=== PATIENT | female | born 1990 | race African-American/Black ===

== ENCOUNTER 2019-06-06 16:39 | Emergency (ER) | payer OTHER ==
[2019-06-06] MEDS ORDERED: ACETAMINOPHEN 500 MG TABLET (FP) PO ONE (16:47)
--- NOTE | 2019-06-06 16:47 | PDOC ---
Rapid Medical Evaluation Time Seen by Provider: 06/06/19 16:46 Medical Evaluation: 06/06/19 16:46 CC: "I have the flu." PE: MMM. OP-WNL. Lungs CTAB. Orders: tylenol Patient will proceed to ED for further evaluation. Discharge Disposition - Diagnosis Influenza-like symptoms - Referrals Referrals: Jerilyn Lance MD [Primary Care Provider] - - Patient Instructions - Post Discharge Activity
[2019-06-06 16:49] VITALS: BP 124/78; PULSE 102; TEMP 102.8; BMI 30.2
--- NOTE | 2019-06-06 17:05 | PDOC ---
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 Past History - Past Medical History Allergies/Adverse Reactions: Allergies Allergy/AdvReac Type Severity Reaction Status Date / Time amoxicillin Allergy Verified 06/06/19 16:49 Home Medications: Ambulatory Orders Oseltamivir Phosphate [Tamiflu] 75 mg PO BID #10 capsule 06/06/19 COPD: No - Psycho Social/Smoking Cessation Hx Smoking History: Never smoked Hx Alcohol Use: No Drug/Substance Use Hx: No Review of Systems - Review of Systems Constitutional: Yes: Fever HEENTM: Yes: Nose Congestion *Physical Exam - Vital Signs Last Vital Signs Temp Pulse Resp BP Pulse Ox 102.8 F H 102 H 16 124/78 100 06/06/19 16:45 06/06/19 16:45 06/06/19 16:45 06/06/19 16:45 06/06/19 16:45 - Physical Exam 06/06/19 17:04 GENERAL: The patient is awake, alert, and fully oriented, in no acute distress. HEAD: Normal with no signs of trauma. EYES: sclera anicteric, conjunctiva clear. ENT: Ears normal tympanic membranes normal oropharynx clear uvula midline NECK: Normal range of motion LUNGS: Breath sounds equal, clear to auscultation bilaterally. No wheezes, and no crackles. HEART: S1 and S2 without murmur, rub or gallop. ABDOMEN: Soft, nontender, normoactive bowel sounds. No guarding, no rebound. No masses. EXTREMITIES: Normal range of motion, no edema. No clubbing or cyanosis. No cords, erythema, or tenderness. NEUROLOGICAL: Cranial nerves II through XII grossly intact. Normal speech, normal gait. PSYCH: Normal mood, normal affect. SKIN: Warm, Dry, normal turgor, no rashes or lesions noted. Medical Decision Making - Medical Decision Making 06/06/19 17:04 Tamiflu sent Discharge - Discharge Information Problems reviewed: Yes Clinical Impression/Diagnosis: Influenza-like symptoms Condition: Stable Disposition: HOME - Admission No - Additional Discharge Information Prescriptions: Oseltamivir Phosphate [Tamiflu] 75 mg PO BID #10 capsule - Follow up/Referral Referrals: Jerilyn Lance MD [Primary Care Provider] - - Patient Discharge Instructions Patient Printed Discharge Instructions: Influenza Additional Instructions: Please take the Tamiflu as directed. Tylenol Motrin as directed for pain. Return to the emergency room for worsening symptoms without fail follow-up with your primary care physician in 2 to 3 days for further evaluation and treatment options. - Post Discharge Activity
[2019-06-06] MEDS ORDERED: ACETAMINOPHEN 325 MG TABLET (FP) ONE (17:31)
== END 2019-06-06 18:01 | disposition home or self-care (01) ==
LOC: JERFT 16:39
DX: J11.1 Influenza due to unidentified influenza virus with other respiratory manifestations (principal); Z88.0 Allergy status to penicillin
CPT/HCPCS: 99281-25

== ENCOUNTER 2019-07-01 17:41 | Emergency (ER) | payer OTHER ==
--- NOTE | 2019-07-01 18:06 | PDOC ---
Rapid Medical Evaluation Time Seen by Provider: 07/01/19 18:02 Medical Evaluation: Allergies Allergy/AdvReac Type Severity Reaction Status Date / Time amoxicillin Allergy Verified 07/01/19 18:04 07/01/19 18:05 Pt c/o: chest pain x 5 days , went to [facility] had ekg and then given toradol, pt states pain is continued and now vomiting Pt on brief exam: reproducible cp zaheer Pt ordered for:labs, ekg, pt to proceed to the ED 07/01/19 18:09 Discharge Disposition - Diagnosis Chest pain - Referrals - Patient Instructions - Post Discharge Activity
[2019-07-01 18:09] VITALS: BP 141/97; PULSE 68; TEMP 98; BMI 28.9
[2019-07-01 18:35] LABS: BASO % 0.6 % (0-2.0); EOS % 0.2 % (0-4.5); HEMATOCRIT 36.2 % (32.4-45.2); HEMOGLOBIN 11.9 GM/dL (10.7-15.3); LYMPH % 22.1 % (8-40); MCH 27.4 pg (25.7-33.7); MCHC 32.8 g/dl (32.0-36.0); MEAN CELL VOLUME 83.5 fl (80-96); MEAN PLT VOLUME 8.9 fl (7.5-11.1); MONO % 5.6 % (3.8-10.2); NEUT % 71.5 % (42.8-82.8); PLATELET COUNT 225 K/MM3 (134-434); RBC 4.34 M/mm3 (3.60-5.2); RDW 14.1 % (11.6-15.6); WHITE BLOOD COUNT 9.9 K/mm3 (4.0-10.0)
[2019-07-01 19:12] LABS: ALBUMIN 4.2 g/dl (3.4-5.0); ALK PHOS 82 U/L (45-117); ANION GAP 7 MMOL/L (8-16); BILIRUBIN,TOTAL 0.3 mg/dL (0.2-1); BLOOD UREA NITROGEN 9.7 mg/dL (7-18); CALCIUM 9.3 mg/dL (8.5-10.1); CHLORIDE 108 mmol/L (98-107); CO2 24 mmol/L (21-32); CREATININE 0.8 mg/dL (0.55-1.3); GLUCOSE,RANDOM 95 mg/dL (74-106); POTASSIUM 3.5 mmol/L (3.5-5.1); SGOT/AST 14 U/L (15-37); SGPT/ALT 14 U/L (13-61); SODIUM 139 mmol/L (136-145); TOT PROT 8.2 g/dl (6.4-8.2)
[2019-07-01] MEDS ORDERED: ONDANSETRON *ODT* 4 MG TABLET SL ONE (20:37)
[2019-07-01] MEDS ORDERED: ONDANSETRON *ODT* 4 MG TABLET ONE (20:42)
--- NOTE | 2019-07-01 20:52 | PDOC ---
History of Present Illness - General Chief Complaint: Cold Symptoms Stated Complaint: CHEST PAIN Time Seen by Provider: 07/01/19 18:02 History Source: Patient Exam Limitations: No Limitations - History of Present Illness Initial Comments: 07/01/19 20:49 HISTORY OF PRESENT ILLNESS: 31-year-old otherwise healthy woman who presents emergency department for evaluation of fevers, headaches, epigastric chest pain , and acidic taste in her mouth over the past 5 days. Patient reports her epigastric pain radiates to lower back. Patient reports multiple ER, urgent care and PMD appointments over the past 5 days for reevaluation of the symptoms. Initially patient was told she had a pneumonia and was told she had influenza. Patient was given a Toradol shot earlier today at her primary doctor 's office after he diagnosed her with an influenza-like illness. No recent travel or sick contacts. PAST MEDICAL HISTORY: Denies past medical history SURGICAL HISTORY: Denies ALLERGIES: No known drug allergies REVIEW OF SYSTEMS General/Constitutional: Denies fever or chills. Denies weakness, weight change. HEENT: Denies change in vision. Denies ear pain or discharge. Denies sore throat. Cardiovascular: See HPI Respiratory: Denies cough, wheezing, or hemoptysis. Gastrointestinal: See HPI Genitourinary: Denies dysuria, frequency, or change in urination. Musculoskeletal: Denies joint or muscle swelling or pain. Denies neck or back pain. Skin and breasts: Denies rash or easy bruising. Neurologic: See HPI Psychiatric: Denies depression or anxiety. Endocrine: Denies increased thirst. Denies abnormal weight change. Hematologic/Lymphatic: Denies anemia, easy bleeding, or history of blood clots. Allergic/Immunologic: Denies hives or skin allergy. Denies latex allergy. PHYSICAL EXAM General Appearance: Well-appearing, appropriately dressed. No apparent distress , no intoxication. HEENT: EOMI, PERRLA, normal ENT inspection, normal voice, TMs normal. No conjunctival pallor. No photophobia, scleral icterus. Oropharynx mildly erythematous without lesions or exudates present. Neck: Supple. Trachea midline. No tenderness, rigidity, carotid bruit, stridor , lymphadenopathy, or thyromegaly. Respiratory/Chest: Lungs CTAB. No shortness of breath, chest tenderness, respiratory distress, accessory muscle use. No crackles, rales, rhonchi, stridor , wheezing, dullness Cardiovascular: RRR. S1, S2. No JVD, murmur, bradycardia, tachycardia. Vascular Pulses: Dorsalis-Pedis (R): 2+, Dorsalis-Pedis (L): 2+ Gastrointestinal/Abdominal: Normal bowel sounds. Abdomen soft, non-distended. No tenderness or rebound tenderness. No organomegaly, pulsatile mass, guarding, hernia, hepatomegaly, splenomegaly. Lymphatic: No adenopathy, tenderness. Musculoskeletal/Extremities: Normal inspection. FROM of all extremities, normal capillary refill. Pelvis Stable. No CVA tenderness. No tenderness to extremities, pedal edema, swelling, erythema or deformity. Integumentary: Appropriate color, dry, warm. No cyanosis, erythema, jaundice or rash Neurologic: sugar sampler II-XII intact. Fully oriented, alert. Appropriate mood/affect. Motor strength 5/5. No appreciable EOM palsy, facial droop or sensory deficit. 07/01/19 22:21 Past History - Past Medical History Allergies/Adverse Reactions: Allergies Allergy/AdvReac Type Severity Reaction Status Date / Time amoxicillin Allergy Verified 07/01/19 18:04 Home Medications: Ambulatory Orders Oseltamivir Phosphate [Tamiflu] 75 mg PO BID #10 capsule 06/06/19 COPD: No - Psycho Social/Smoking Cessation Hx Smoking History: Never smoked Hx Alcohol Use: No Drug/Substance Use Hx: No *Physical Exam - Vital Signs Last Vital Signs Temp Pulse Resp BP Pulse Ox 98 F 68 18 141/97 99 07/01/19 18:05 07/01/19 18:05 07/01/19 18:05 07/01/19 18:05 07/01/19 18:05 ED Treatment Course - LABORATORY CBC & Chemistry Diagram: 07/01/19 18:20 07/01/19 18:20 - ADDITIONAL ORDERS Additional order review: Laboratory Results 07/01/19 18:20 Sodium 139 Potassium 3.5 Chloride 108 H Carbon Dioxide 24 Anion Gap 7 L BUN 9.7 Creatinine 0.8 Est GFR (CKD-EPI)AfAm 117.93 Est GFR (CKD-EPI)NonAf 101.75 Random Glucose 95 Calcium 9.3 Total Bilirubin 0.3 AST 14 L ALT 14 Alkaline Phosphatase 82 Creatine Kinase 117 Troponin I < 0.02 Total Protein 8.2 Albumin 4.2 07/01/19 18:20 RBC 4.34 MCV 83.5 MCHC 32.8 RDW 14.1 MPV 8.9 Neutrophils % 71.5 Lymphocytes % 22.1 Monocytes % 5.6 Eosinophils % 0.2 Basophils % 0.6 - RADIOLOGY Radiology Studies Ordered: Category Date Time Status CHEST PA & LAT [RAD] Stat Radiology 07/01/19 20:35 Ordered - Medications Given in the ED: ED Medications Discontinued Medications Generic Name Dose Route Start Last Admin Trade Name Freq PRN Reason Stop Dose Admin Ondansetron HCl 4 mg 07/01/19 20:37 07/01/19 20:46 Zofran Odt - SL 07/01/19 20:38 4 mg ONCE ONE Administration Medical Decision Making - Medical Decision Making 07/01/19 20:51 A/P: 28-year-old woman with 5 days of epigastric pain, acidic taste in the mouth, headaches and fevers. Physical exam is unremarkable Laboratory testing per [facility] EKG Chest x-ray Urinalysis, urine culture, urine , urine toxicology Zofran 4 mg sublingual now Encourage oral fluids Reassess 07/01/19 22:20 Laboratory Tests 07/01/19 07/01/19 07/01/19 18:20 18:20 20:39 WBC 9.9 RBC 4.34 Hgb 11.9 Hct 36.2 MCV 83.5 MCH 27.4 MCHC 32.8 RDW 14.1 Plt Count 225 MPV 8.9 Absolute Neuts (auto) 7.0 Neutrophils % 71.5 Lymphocytes % 22.1 Monocytes % 5.6 Eosinophils % 0.2 Basophils % 0.6 Nucleated RBC % 0 Sodium 139 Potassium 3.5 Chloride 108 H Carbon Dioxide 24 Anion Gap 7 L BUN 9.7 Creatinine 0.8 Est GFR (CKD-EPI)AfAm 117.93 Est GFR (CKD-EPI)NonAf 101.75 Random Glucose 95 Calcium 9.3 Total Bilirubin 0.3 AST 14 L ALT 14 Alkaline Phosphatase 82 Creatine Kinase 117 Troponin I < 0.02 Total Protein 8.2 Albumin 4.2 Urine Color Urine Appearance Urine pH Ur Specific [place] Urine Protein Urine Glucose (UA) Urine Ketones Urine Blood Urine Nitrite Urine Bilirubin Urine Urobilinogen Ur Leukocyte Esterase Urine WBC (Auto) Urine RBC (Auto) Urine Casts (Auto) U Epithel Cells (Auto) Urine Bacteria (Auto) Urine HCG, Qual Opiates Screen Negative Methadone Screen Negative Barbiturate Screen Negative Phencyclidine Screen Negative Ur Amphetamines Screen Negative MDMA (Ecstasy) Screen Negative Benzodiazepines Screen Negative Cocaine Screen Negative U Marijuana (THC) Screen Positive A* 07/01/19 07/01/19 20:39 20:39 WBC RBC Hgb Hct MCV MCH MCHC RDW Plt Count MPV Absolute Neuts (auto) Neutrophils % Lymphocytes % Monocytes % Eosinophils % Basophils % Nucleated RBC % Sodium Potassium Chloride Carbon Dioxide Anion Gap BUN Creatinine Est GFR (CKD-EPI)AfAm Est GFR (CKD-EPI)NonAf Random Glucose Calcium Total Bilirubin AST ALT Alkaline Phosphatase Creatine Kinase Troponin I Total Protein Albumin Urine Color Yellow Urine Appearance Cloudy Urine pH 5.5 Ur Specific [place] 1.007 L Urine Protein Negative Urine Glucose (UA) Negative Urine Ketones Trace H Urine Blood 3+ H Urine Nitrite Negative Urine Bilirubin Negative Urine Urobilinogen 0.2 Ur Leukocyte Esterase Trace Urine WBC (Auto) 5 Urine RBC (Auto) 1 Urine Casts (Auto) 1 U Epithel Cells (Auto) 6.3 Urine Bacteria (Auto) 174.1 Urine HCG, Qual Negative Opiates Screen Methadone Screen Barbiturate Screen Phencyclidine Screen Ur Amphetamines Screen MDMA (Ecstasy) Screen Benzodiazepines Screen Cocaine Screen U Marijuana (THC) Screen Chest x-ray as read by me: Angles sharp. Cardiac silhouette is within normal limits. Lung ibarra clear without infiltrate or consolidation noted. EKG sinus rhythm with rate of 76. Normal intervals present. QTc 432 ms. Normal axis. Biphasic T waves present. As patient has mild right flank pain and 3+ blood in her urine we will obtain a spiral CT rule out kidney stone. Patient is in agreement with this current plan. Motrin 600 mg orally now Maalox 30 cc orally now Reassess 07/01/19 22:22 CT scan is read by Dr. Dorado: No CT evidence of urolithiasis or obstructive uropathy. Small umbilical and midline supraumbilical hernias are noted containing fat only. Discharge home I discussed the physical exam findings, ancillary test results and final diagnoses with the patient. I answered all of the patient's questions. The patient was satisfied with the care received and felt comfortable with the discharge plan and treatment plan. The patient will call their primary care physician within 24 hours to arrange follow-up and will return to the Emergency Department with any new, persistent or worsening symptoms. 07/01/19 22:48 Discharge - Discharge Information Problems reviewed: Yes Clinical Impression/Diagnosis: Epigastric pain Condition: Stable Disposition: HOME - Admission No - Follow up/Referral Referrals: Deng Rasmussen II, DO [Primary Care Provider] - - Patient Discharge Instructions Additional Instructions: Your EKG and chest x-ray today were unremarkable. Urine showed small amounts of blood but without signs of infection. Your emergency department visit is incomplete until you follow-up with your primary doctor. Return to the emergency department for any new or worsening symptoms. Thank you very much for choosing us to provide your emergent healthcare needs. - Post Discharge Activity
[2019-07-01 21:21] LABS: EPI CELLS 6.3 /HPF (0-5/HPF); HYALINE CASTS 1 /lpf (0-8); PH,URINE 5.5 (5.0-8.0); URINE APPEARANCE CLOUDY; URINE BACTERIA 174.1 /hpf (NEGATIVE); URINE BILIRUBIN NEGATIVE (NEGATIVE); URINE COLOR YELLOW; URINE GLUCOSE (UA) NEGATIVE (NEGATIVE); URINE KETONE TRACE (NEGATIVE); URINE LEUK ESTERASE TRACE (NEGATIVE); URINE NITRITE NEGATIVE (NEGATIVE); URINE PROTEIN NEGATIVE (NEGATIVE); URINE RBC 1 /hpf (0-4); URINE UROBILINOGEN 0.2 mg/dL (0.2-1.0); URINE WBC 5 /hpf (0-5)
[2019-07-01] MEDS ORDERED: ACETAMINOPHEN 500 MG TABLET (FP) PO ONE (21:30)
[2019-07-01 21:32] LABS: COCAINE, UR NEGATIVE ng/ml (CUTOFF=300); METHADONE, UR NEGATIVE ng/ml (CUTOFF=300); OPIATES, URI NEGATIVE ng/ml (CUTOFF=300); PHENCYCLIDINE,URINE NEGATIVE ng/ml (CUTOFF=25); URINE AMPHETAMINES NEGATIVE ng/ml (CUTOFF=500); URINE BARBITURATES NEGATIVE ng/ml (CUTOFF=200); URINE BENZODIAZEPINES NEGATIVE ng/ml (CUTOFF=200)
[2019-07-01] MEDS ORDERED: ACETAMINOPHEN 325 MG TABLET (FP) ONE (21:34)
[2019-07-01] MEDS ORDERED: MAG HYDROX/AL HYDROX/SIMETH 30 ML UNIT-DOSE CUP PO ONE (22:15)
[2019-07-01] MEDS ORDERED: IBUPROFEN 600 MG TABLET (FP) PO ONE ×2 (22:15→22:16)
[2019-07-01] MEDS ORDERED: MAG HYDROX/AL HYDROX/SIMETH 30 ML UNIT-DOSE CUP ONE (22:16)
--- NOTE | 2019-07-02 10:51 | EKG ---
Test Reason : Blood Pressure : / mmHG Vent. Rate : 076 BPM Atrial Rate : 078 BPM P-R Int : 132 ms QRS Dur : 082 ms QT Int : 384 ms P-R-T Axes : 029 041 030 degrees QTc Int : 432 ms POOR DATA QUALITY, INTERPRETATION MAY BE ADVERSELY AFFECTED NORMAL SINUS RHYTHM WITH ATRIAL PREMATURE CONTRACTIONS NONSPECIFIC T WAVE ABNORMALITY ABNORMAL ECG NO PREVIOUS ECGS AVAILABLE Confirmed by BROOKE LEHMAN MD ([id number]) on 07/02/2019 10:50:51 AM Referred By: Confirmed By:BROOKE LEHMAN MD
== END 2019-07-01 23:00 | disposition home or self-care (01) ==
LOC: JERFT 17:41
DX: R10.13 Epigastric pain (principal); R31.9 Hematuria, unspecified; R10.31 Right lower quadrant pain
CPT/HCPCS: 36415; 71046-TC-FY; 74176-TC; 80053; 80307; 81003; 82550; 84484; 84703; 85025; 87086; 93005; 93010; 99282-25; Q0162

== ENCOUNTER 2019-07-29 23:52 | Emergency (ER) | payer OTHER ==
[2019-07-30 00:07] VITALS: BMI 28.0
--- NOTE | 2019-07-30 00:50 | PDOC ---
Attending Attestation - Resident Resident Name: Antonia Franco - ED Attending Attestation I have performed the following: I have examined & evaluated the patient, The case was reviewed & discussed with the resident, I agree w/resident's findings & plan
[2019-07-30] MEDS ORDERED: ONDANSETRON 4 MG/2 ML VIAL IVPUSH ONE (01:05)
[2019-07-30] MEDS ORDERED: LIDOCAINE VISCOUS 2% ORAL/TOP 20 ML UNIT-DOSE CUP MM ONE (01:07)
[2019-07-30] MEDS ORDERED: MAG HYDROX/AL HYDROX/SIMETH 30 ML UNIT-DOSE CUP PO ONE (01:07)
[2019-07-30] MEDS ORDERED: FAMOTIDINE 20 MG/50 ML IVPB 20 MG/50 ML MG IVPB ONE ×2 (01:07→01:24)
--- NOTE | 2019-07-30 01:22 | PDOC ---
History of Present Illness - General Chief Complaint: Nausea/Vomiting Stated Complaint: CHEST PAIN/HEADACHE Time Seen by Provider: 07/30/19 00:48 - History of Present Illness Initial Comments: 07/30/19 01:09 28 y/o F with no significant PMH presents to the ED because of persistent N/V associated with epigastric pain for the past 2 weeks. Pt admits that her symptoms are similar to her previous gastritis flare. She explains that she was prescribed acid reflux meds 2 weeks ago but stopped taking it with no clear reason. She denies any associated chest pain, SOB,fever, chills. She had a similar complaints in the past with unremakable imaging. LMP 06/26/19. prior c section no other abdominal surgery hx. Normal BM with last being yesterday. She endorses generalized weakness and headache since her symptoms started. She admits to marijuana smoking which exacerbates her symptoms. Frequent urination w /o dysuria or abnormal discharge Allergies: PCNs, Amoxicillin PSH: C sections Social : marijuana smoking ROS: Constitutional: no fever, no chills HEENT: no throat pain, no dysphagia Cardiovascular: no chest pain, no palpitations Respiratory: no cough, no shortness of breath Gastrointestinal: N/V, epigastric tenderness Genitourinary: no dysuria but frequent urination Musculoskeletal: no myalgia, no arthralgia Skin: no rash, no itching Neurologic: no headache, no weakness Psych: no agitation, no anxiety PE: VSS GEN: NAD HEENT: PERRLA, moist membrane, clear conjunctiva NECK: no JVD CHEST: vesicular breath sounds b/l HEART: RRR no murmur, rubs or gallop ABDOMEN: + BS, midly tender on palpation, mildly distended Extremities: 2+ pulses, no edema SKIN: no rash noted MSK: normal ROM in all extremities PSYCH: normal affect Assessment: GERD vs THC associated hyperemesis vs vs least likely pancreatitis and SBO Plan: CBC, CMP, Urine preg, CXR and KUB to r/o obstruction, lipase, ekg will give GI cocktail : pepcid, maalox, viscous lidocaine. will also give zofran for nausea Pt signed out to night ED resident 08/01/19 21:34 Past History - Past Medical History Allergies/Adverse Reactions: Allergies Allergy/AdvReac Type Severity Reaction Status Date / Time amoxicillin Allergy Verified 07/30/19 00:07 Home Medications: Ambulatory Orders Oseltamivir Phosphate [Tamiflu] 75 mg PO BID #10 capsule 06/06/19 COPD: No - Psycho Social/Smoking Cessation Hx Smoking History: Never smoked Hx Alcohol Use: No Drug/Substance Use Hx: No *Physical Exam - Vital Signs Last Vital Signs Temp Pulse Resp BP Pulse Ox 98 F 74 18 144/78 100 07/30/19 00:02 07/30/19 00:02 07/30/19 00:02 07/30/19 00:02 07/30/19 00:02 ED Treatment Course - LABORATORY CBC & Chemistry Diagram: 07/30/19 01:33 07/30/19 01:33 Discharge - Discharge Information Problems reviewed: Yes Clinical Impression/Diagnosis: Nausea and vomiting Qualifiers: Vomiting type: unspecified Vomiting Intractability: non-intractable Qualified Code(s): R11.2 - Nausea with vomiting, unspecified Condition: Improved Disposition: HOME - Follow up/Referral Referrals: Jerilyn Waggoner MD [Primary Care Provider] - - Patient Discharge Instructions Patient Printed Discharge Instructions: DI for Abdominal Pain-Adult, DI for Vomiting -- Adult Additional Instructions: You were seen in the Emergency Department for vomiting. Your labs and imaging were unremarkable. Review the handout provided at discharge. Follow up with your primary care provider within a week. Bananas, Apples, Rice, and Sherman (BRAT) diets may be beneficial to alleviating your symptoms. Avoid heavily flavored foods and spicy foods. Start with water/gatorade sips and advance as tolerated. If you try to incorporate solids and vomit, go back to liquids and try advancing slowly again over several hours. Return to the Emergency Department if you develop fevers/chills, chest pain, trouble breathing, inability to tolerate fluids, blood in your stool/vomit, worsening pain, worsening symptoms, or any new/concerning symptoms. - Post Discharge Activity Work/Back to School Note: Back to Work
[2019-07-30] MEDS ORDERED: LIDOCAINE VISCOUS 2% ORAL/TOP 20 ML UNIT-DOSE CUP ONE (01:23)
[2019-07-30] MEDS ORDERED: MAG HYDROX/AL HYDROX/SIMETH 30 ML UNIT-DOSE CUP ONE (01:23)
[2019-07-30] MEDS ORDERED: ONDANSETRON 4 MG/2 ML VIAL ONE (01:24)
[2019-07-30 01:46] LABS: BASO % 0.5 % (0-2.0); EOS % 0.3 % (0-4.5); HEMATOCRIT 33.9 % (32.4-45.2); HEMOGLOBIN 11.4 GM/dL (10.7-15.3); LYMPH % 22.4 % (8-40); MCH 28.2 pg (25.7-33.7); MCHC 33.7 g/dl (32.0-36.0); MEAN CELL VOLUME 83.6 fl (80-96); MEAN PLT VOLUME 8.5 fl (7.5-11.1); MONO % 7.1 % (3.8-10.2); NEUT % 69.7 % (42.8-82.8); PLATELET COUNT 207 K/MM3 (134-434); RBC 4.06 M/mm3 (3.60-5.2); RDW 14.8 % (11.6-15.6); WHITE BLOOD COUNT 8.9 K/mm3 (4.0-10.0)
[2019-07-30] MEDS ORDERED: HALOPERIDOL LACTATE 5 MG/ML IM ONE (02:03)
--- NOTE | 2019-07-30 02:07 | PDOC ---
Documentation entered by Zeke Garcia SCRIBE, acting as scribe for Rj Gomez DO. Rj Gomez DO: This documentation has been prepared by the Jose bingham Daniel, SCRIBE, under my direction and personally reviewed by me in its entirety. I confirm that the documentation accurately reflects all work, treatment, procedures, and medical decision making performed by me. Attending Attestation - Resident Resident Name: AnandAlena breaux - ED Attending Attestation I have performed the following: I have examined & evaluated the patient, The case was reviewed & discussed with the resident, I agree w/resident's findings & plan, Exceptions are as noted - HPI HPI: 07/30/19 01:13 The patient is a 28 year old female here with multiple episodes of nausea and vomiting. She states that this feels like her typical gastritis which she has had in the past. She also notes having a prior . She denies any chest pain, shortness of breath, or fever, her last bowel movement was this morning and was normal. - Physicial Exam PE: 07/30/19 01:13 GENERAL: Awake, alert, and fully oriented, in no acute distress HEAD: No signs of trauma EYES: PERRLA, EOMI, sclera anicteric, conjunctiva clear ENT: Auricles normal inspection, hearing grossly normal, nares patent, oropharynx clear without exudates. Moist mucosa NECK: Normal ROM, supple, no lymphadenopathy, JVD, or masses LUNGS: Breath sounds equal, clear to auscultation bilaterally. No wheezes, and no crackles HEART: Regular rate and rhythm, normal S1 and S2, no murmurs, rubs or gallops ABDOMEN: +distractible epigastric tenderness. Soft, normoactive bowel sounds. No guarding, no rebound. No masses EXTREMITIES: Normal range of motion, no edema. No clubbing or cyanosis. No cords, erythema, or tenderness NEUROLOGICAL: Cranial nerves II through XII grossly intact. Normal speech, normal gait SKIN: Warm, Dry, normal turgor, no rashes or lesions noted. - Medical Decision Making 07/30/19 01:14 Patient is a 28 year old female here with multiple episodes of nausea and vomiting. Patient admits to smoking marijuana which makes her symptoms worse. Will get basic labs, chest x-ray, and abdominal x-ray to rule out gross obstruction. Will give GI cocktail. Will reassess and consider CT imaging if patient does not improve.
[2019-07-30 02:08] LABS: PH,URINE 5.5 (5.0-8.0); URINE APPEARANCE CLEAR; URINE BILIRUBIN NEGATIVE (NEGATIVE); URINE COLOR YELLOW; URINE GLUCOSE (UA) NEGATIVE (NEGATIVE); URINE KETONE TRACE (NEGATIVE); URINE LEUK ESTERASE NEGATIVE (NEGATIVE); URINE NITRITE NEGATIVE (NEGATIVE); URINE PROTEIN NEGATIVE (NEGATIVE); URINE UROBILINOGEN 0.2 mg/dL (0.2-1.0)
[2019-07-30 02:27] LABS: BILIRUBIN,TOTAL 0.7 mg/dL (0.2-1); BLOOD UREA NITROGEN 12.4 mg/dL (7-18); CALCIUM 9.5 mg/dL (8.5-10.1); CREATININE 0.7 mg/dL (0.55-1.3); POTASSIUM 3.5 mmol/L (3.5-5.1); TOT PROT 7.5 g/dl (6.4-8.2)
[2019-07-30] MEDS ORDERED: HALOPERIDOL LACTATE 5 MG/ML ONE (02:44)
--- NOTE | 2019-07-30 02:47 | PDOC ---
*Physical Exam - Vital Signs Last Vital Signs Temp Pulse Resp BP Pulse Ox 98 F 74 18 144/78 100 07/30/19 00:02 07/30/19 00:02 07/30/19 00:02 07/30/19 00:02 07/30/19 00:02 ED Treatment Course - LABORATORY CBC & Chemistry Diagram: 07/30/19 01:33 07/30/19 01:33 - ADDITIONAL ORDERS Additional order review: Laboratory Results 07/30/19 07/30/19 07/30/19 01:36 01:36 01:33 Sodium Potassium Chloride Carbon Dioxide Anion Gap BUN Creatinine Est GFR (CKD-EPI)AfAm Est GFR (CKD-EPI)NonAf Random Glucose Calcium Total Bilirubin AST ALT Alkaline Phosphatase Total Protein Albumin Lipase 126 Urine Color Yellow Urine Appearance Clear Urine pH 5.5 Ur Specific [place] 1.019 Urine Protein Negative Urine Glucose (UA) Negative Urine Ketones Trace H Urine Blood Negative Urine Nitrite Negative Urine Bilirubin Negative Urine Urobilinogen 0.2 Ur Leukocyte Esterase Negative Urine HCG, Qual Negative 07/30/19 01:33 Sodium 139 Potassium 3.5 Chloride 107 Carbon Dioxide 26 Anion Gap 5 L BUN 12.4 Creatinine 0.7 Est GFR (CKD-EPI)AfAm 138.59 Est GFR (CKD-EPI)NonAf 119.58 Random Glucose 91 Calcium 9.5 Total Bilirubin 0.7 AST 18 ALT 15 Alkaline Phosphatase 75 Total Protein 7.5 Albumin 4.0 Lipase Urine Color Urine Appearance Urine pH Ur Specific [place] Urine Protein Urine Glucose (UA) Urine Ketones Urine Blood Urine Nitrite Urine Bilirubin Urine Urobilinogen Ur Leukocyte Esterase Urine HCG, Qual 07/30/19 01:33 RBC 4.06 MCV 83.6 MCHC 33.7 RDW 14.8 MPV 8.5 Neutrophils % 69.7 Lymphocytes % 22.4 Monocytes % 7.1 Eosinophils % 0.3 Basophils % 0.5 - Medications Given in the ED: ED Medications Discontinued Medications Generic Name Dose Route Start Last Admin Trade Name Freq PRN Reason Stop Dose Admin Al Hydroxide/Mg Hydroxide 30 ml 07/30/19 01:07 07/30/19 01:31 Mylanta Oral Suspension - PO 07/30/19 01:08 30 ml ONCE ONE Administration Famotidine/Sodium Chloride 20 mg in 50 mls @ 100 mls/hr 07/30/19 01:07 01:31 Pepcid 20 Mg Premixed Ivpb - IVPB 07/30/19 01:36 100 mls/hr ONCE ONE Administration Lidocaine HCl 20 ml 07/30/19 01:07 07/30/19 01:31 Xylocaine 2% Viscous Oral - MM 07/30/19 01:08 20 ml ONCE ONE Administration Ondansetron HCl 4 mg 07/30/19 01:05 07/30/19 01:31 Zofran Injection IVPUSH 07/30/19 01:06 4 mg ONCE ONE Administration Medical Decision Making - Medical Decision Making 07/30/19 02:46 Pt signed out to me; cyclical vomiting of THC; pt is not and her labs are normal and she will be treated with hydration and with haldol IM 07/30/19 02:50 Pt refusing the haldol IM; she wants it IV; I explained that there are greater side effects and arrhythmia potential with IV haldol 07/30/19 04:05 Pt still feels lousy 07/31/19 05:40 Pt improved and she is ready to go. Understands that quitting pot is the only way to feel better Discharge - Discharge Information Problems reviewed: Yes Clinical Impression/Diagnosis: Nausea and vomiting Qualifiers: Vomiting type: unspecified Vomiting Intractability: non-intractable Qualified Code(s): R11.2 - Nausea with vomiting, unspecified Condition: Improved Disposition: HOME - Follow up/Referral Referrals: Jerilyn Waggoner MD [Primary Care Provider] - - Patient Discharge Instructions Patient Printed Discharge Instructions: DI for Abdominal Pain-Adult, DI for Vomiting -- Adult Additional Instructions: You were seen in the Emergency Department for vomiting. Your labs and imaging were unremarkable. Review the handout provided at discharge. Follow up with your primary care provider within a week. Bananas, Apples, Rice, and [place] (BRAT) diets may be beneficial to alleviating your symptoms. Avoid heavily flavored foods and spicy foods. Start with water/gatorade sips and advance as tolerated. If you try to incorporate solids and vomit, go back to liquids and try advancing slowly again over several hours. Return to the Emergency Department if you develop fevers/chills, chest pain, trouble breathing, inability to tolerate fluids, blood in your stool/vomit, worsening pain, worsening symptoms, or any new/concerning symptoms. - Post Discharge Activity Work/Back to School Note: Back to Work
[2019-07-30] MEDS ORDERED: HALOPERIDOL LACTATE 5 MG/ML IV ONE (02:49)
[2019-07-30] MEDS ORDERED: KETOROLAC TROMETHAMINE 30 MG/1 ML VIAL IVPUSH ONE (03:40)
[2019-07-30] MEDS ORDERED: SODIUM CHLORIDE 0.9% 500 ML INFUS.BAG IV ONE (03:40)
[2019-07-30] MEDS ORDERED: METOCLOPRAMIDE HCL INJECTION 10 MG/2 ML VIAL IVPB ONE (03:42)
[2019-07-30] MEDS ORDERED: METOCLOPRAMIDE HCL INJECTION 10 MG/2 ML VIAL ONE (03:47)
[2019-07-30] MEDS ORDERED: KETOROLAC TROMETHAMINE 30 MG/1 ML VIAL ONE (03:47)
[2019-07-30 04:06] VITALS: BP 116/61; PULSE 73; TEMP 98.1
--- NOTE | 2019-07-30 05:17 | PDOC ---
*Physical Exam - Vital Signs Last Vital Signs Temp Pulse Resp BP Pulse Ox 98.1 F 73 18 116/61 100 07/30/19 04:05 07/30/19 04:05 07/30/19 04:05 07/30/19 04:05 07/30/19 04:05 ED Treatment Course - LABORATORY CBC & Chemistry Diagram: 07/30/19 01:33 07/30/19 01:33 - ADDITIONAL ORDERS Additional order review: Laboratory Results 07/30/19 07/30/19 07/30/19 01:36 01:36 01:33 Sodium Potassium Chloride Carbon Dioxide Anion Gap BUN Creatinine Est GFR (CKD-EPI)AfAm Est GFR (CKD-EPI)NonAf Random Glucose Calcium Total Bilirubin AST ALT Alkaline Phosphatase Total Protein Albumin Lipase 126 Urine Color Yellow Urine Appearance Clear Urine pH 5.5 Ur Specific [place] 1.019 Urine Protein Negative Urine Glucose (UA) Negative Urine Ketones Trace H Urine Blood Negative Urine Nitrite Negative Urine Bilirubin Negative Urine Urobilinogen 0.2 Ur Leukocyte Esterase Negative Urine HCG, Qual Negative 07/30/19 01:33 Sodium 139 Potassium 3.5 Chloride 107 Carbon Dioxide 26 Anion Gap 5 L BUN 12.4 Creatinine 0.7 Est GFR (CKD-EPI)AfAm 138.59 Est GFR (CKD-EPI)NonAf 119.58 Random Glucose 91 Calcium 9.5 Total Bilirubin 0.7 AST 18 ALT 15 Alkaline Phosphatase 75 Total Protein 7.5 Albumin 4.0 Lipase Urine Color Urine Appearance Urine pH Ur Specific [place] Urine Protein Urine Glucose (UA) Urine Ketones Urine Blood Urine Nitrite Urine Bilirubin Urine Urobilinogen Ur Leukocyte Esterase Urine HCG, Qual 07/30/19 01:33 RBC 4.06 MCV 83.6 MCHC 33.7 RDW 14.8 MPV 8.5 Neutrophils % 69.7 Lymphocytes % 22.4 Monocytes % 7.1 Eosinophils % 0.3 Basophils % 0.5 - Medications Given in the ED: ED Medications Discontinued Medications Generic Name Dose Route Start Last Admin Trade Name Freq PRN Reason Stop Dose Admin Al Hydroxide/Mg Hydroxide 30 ml 07/30/19 01:07 07/30/19 01:31 Mylanta Oral Suspension - PO 07/30/19 01:08 30 ml ONCE ONE Administration Haloperidol 2.5 mg 07/30/19 02:49 07/30/19 02:57 Haldol Injection (Fast Acting) - IV 07/30/19 02:50 2.5 mg NOW ONE Administration Famotidine/Sodium Chloride 20 mg in 50 mls @ 100 mls/hr 07/30/19 01:07 01:31 Pepcid 20 Mg Premixed Ivpb - IVPB 07/30/19 01:36 100 mls/hr ONCE ONE Administration Ketorolac Tromethamine 30 mg 07/30/19 03:40 07/30/19 04:04 Toradol Injection - IVPUSH 07/30/19 03:41 30 mg ONCE ONE Administration Lidocaine HCl 20 ml 07/30/19 01:07 07/30/19 01:31 Xylocaine 2% Viscous Oral - MM 07/30/19 01:08 20 ml ONCE ONE Administration Metoclopramide HCl 10 mg 07/30/19 03:42 07/30/19 04:04 Reglan Injection - IVPB 07/30/19 03:43 10 mg ONCE ONE Administration Ondansetron HCl 4 mg 07/30/19 01:05 07/30/19 01:31 Zofran Injection IVPUSH 07/30/19 01:06 4 mg ONCE ONE Administration Sodium Chloride 1,000 ml 07/30/19 03:40 07/30/19 04:05 Normal Saline - IV 07/30/19 03:41 1,000 ml ONCE ONE Administration Medical Decision Making - Medical Decision Making Pt received as sign out. Pt presented to N/V Pt continues to reports nausea and dizziness Will give pt Haldol Pt with persistent symptoms Given IVF and Reglan Pt states that she is beginning to feel better Will finish IVF and reassess 07/30/19 05:10 Pt feels improved at this time Plan for D/C w/ PCP f/u Discharge instructions and return precautions given Patient in agreement and verbalized understanding Dispo: Home 07/30/19 05:40 Discharge - Discharge Information Problems reviewed: Yes Clinical Impression/Diagnosis: Nausea and vomiting Qualifiers: Vomiting type: unspecified Vomiting Intractability: non-intractable Qualified Code(s): R11.2 - Nausea with vomiting, unspecified Condition: Improved - Admission No - Follow up/Referral Referrals: Jerilyn Waggoner MD [Primary Care Provider] - - Patient Discharge Instructions Patient Printed Discharge Instructions: DI for Vomiting -- Adult, DI for Abdominal Pain-Adult Additional Instructions: You were seen in the Emergency Department for vomiting. Your labs and imaging were unremarkable. Review the handout provided at discharge. Follow up with your primary care provider within a week. Bananas, Apples, Rice, and [place] (BRAT) diets may be beneficial to alleviating your symptoms. Avoid heavily flavored foods and spicy foods. Start with water/gatorade sips and advance as tolerated. If you try to incorporate solids and vomit, go back to liquids and try advancing slowly again over several hours. Return to the Emergency Department if you develop fevers/chills, chest pain, trouble breathing, inability to tolerate fluids, blood in your stool/vomit, worsening pain, worsening symptoms, or any new/concerning symptoms. - Post Discharge Activity Work/Back to School Note: Back to Work
--- NOTE | 2019-07-30 10:33 | EKG ---
Test Reason : Blood Pressure : / mmHG Vent. Rate : 064 BPM Atrial Rate : 064 BPM P-R Int : 140 ms QRS Dur : 094 ms QT Int : 400 ms P-R-T Axes : 030 044 009 degrees QTc Int : 412 ms NORMAL SINUS RHYTHM T WAVE ABNORMALITY, CONSIDER ANTERIOR ISCHEMIA ABNORMAL ECG WHEN COMPARED WITH ECG OF 30-JUL-2019 00:03, NO SIGNIFICANT CHANGE WAS FOUND Confirmed by COLT MCCORMACK, PERCY ([id number]) on 07/30/2019 10:33:36 AM Referred By: Confirmed By:PERCY GREGORY MD
--- NOTE | 2019-08-02 14:55 | EKG ---
Test Reason : Blood Pressure : / mmHG Vent. Rate : 066 BPM Atrial Rate : 066 BPM P-R Int : 146 ms QRS Dur : 098 ms QT Int : 404 ms P-R-T Axes : 050 035 -13 degrees QTc Int : 423 ms NORMAL SINUS RHYTHM T WAVE ABNORMALITY, CONSIDER ANTERIOR ISCHEMIA ABNORMAL ECG WHEN COMPARED WITH ECG OF 01-JUL-2019 18:16, INVERTED T WAVES HAVE REPLACED NONSPECIFIC T WAVE ABNORMALITY IN INFERIOR LEADS INVERTED T WAVES HAVE REPLACED NONSPECIFIC T WAVE ABNORMALITY IN ANTERIOR LEADS Confirmed by Júnior Clark MD ([id number]) on 08/02/2019 2:55:34 PM Referred By: Confirmed By:Júnior Clark MD
== END 2019-07-30 06:02 | disposition home or self-care (01) ==
LOC: JER 23:52
PROC: 3E033GC Introduction of Other Therapeutic Substance into Peripheral Vein, Percutaneous Approach (ICD-10-PCS; principal; 2019-07-29)
PROC: 3E0333Z Introduction of Anti-inflammatory into Peripheral Vein, Percutaneous Approach (ICD-10-PCS; 2019-07-29)
PROC: 3E033GC Introduction of Other Therapeutic Substance into Peripheral Vein, Percutaneous Approach (ICD-10-PCS; 2019-07-29)
PROC: 3E033GC Introduction of Other Therapeutic Substance into Peripheral Vein, Percutaneous Approach (ICD-10-PCS; 2019-07-29)
DX: R11.2 Nausea with vomiting, unspecified (principal); F12.10 Cannabis abuse, uncomplicated; Z87.19 Personal history of other diseases of the digestive system; Z88.0 Allergy status to penicillin
CPT/HCPCS: 36415; 71046-TC-FY; 74018-TC-FY; 80053; 81003; 83690; 84703; 85025; 93005; 93010; 96365; 96375; 99285-25

== ENCOUNTER 2019-08-13 01:32 | Emergency (ER) | payer OTHER ==
--- NOTE | 2019-08-13 01:43 | PDOC ---
History of Present Illness - General Stated Complaint: HEART BURN AND ABD PAIN - History of Present Illness Initial Comments: The pt is a 28F w/ a history of GERD who presents for evaluation of 4 hours of epigastric abdominal pain. The pain is burning, radiates to her chest, is c onstant, associated NBNB emesis x2, and is not alleviated by anything she can identify. She states that she has medications at home but has not taken them because they make her feel worse. She endorses eating sesame chicken tonight hand having a 'shot' of Jd's vodka. Denies fevers/chills, trouble breathing, dysuria, hematuria, diarrhea, or blood in her stool. 08/13/19 01:53 Past History - Past Medical History Allergies/Adverse Reactions: Allergies Allergy/AdvReac Type Severity Reaction Status Date / Time amoxicillin Allergy Verified 08/13/19 01:45 Penicillins Allergy Verified 08/13/19 01:45 Home Medications: Ambulatory Orders NK [No Known Home Medication] 08/13/19 COPD: No - Psycho Social/Smoking Cessation Hx Smoking History: Never smoked Hx Alcohol Use: No Drug/Substance Use Hx: No Review of Systems - Review of Systems Able to Perform ROS?: Yes Comments:: GENERAL/CONSTITUTIONAL: No fever or chills. No weakness HEAD, EYES, EARS, NOSE AND THROAT: No change in vision. No change in hearing. No sore throat CARDIOVASCULAR: No chest pain or shortness of breath RESPIRATORY: Denies cough, hemoptysis GASTROINTESTINAL: per HPI GENITOURINARY: No dysuria, frequency, or change in urination MUSCULOSKELETAL: No joint or muscle swelling or pain. No neck pain SKIN: No rash NEUROLOGIC: No headache, vertigo, loss of consciousness, or change in strength/sensation ENDOCRINE: No increased thirst. No abnormal weight change HEMATOLOGIC/LYMPHATIC: No anemia, easy bleeding, or history of blood clots ALLERGIC/IMMUNOLOGIC: No hives or skin allergy 08/13/19 01:42 Is the patient limited [place] proficient: No *Physical Exam - Physical Exam GENERAL: Awake, alert, and oriented to person/place/time, in no acute distress HEAD: No signs of trauma, normocephalic, atraumatic EYES: PERRLA, EOMI, sclera anicteric, conjunctiva clear ENT: Hearing grossly normal, nares patent, oropharynx clear without exudates. Moist mucosa LUNGS: No distress, speaks in full sentences, clear to auscultation bilaterally HEART: Regular rate and rhythm, normal S1 and S2, no murmurs appreciated, peripheral pulses normal and equal bilaterally ABDOMEN: Soft, protuberant, mild epigastric TTP w/o rebound or guarding, no rmoactive bowel sounds EXTREMITIES: Normal inspection, Normal range of motion, no edema. No clubbing or cyanosis NEUROLOGICAL: Cranial nerves II through XII grossly intact. Normal speech, normal gait, no focal sensorimotor deficits SKIN: Warm, Dry 08/13/19 01:43 ED Treatment Course - LABORATORY CBC & Chemistry Diagram: 08/13/19 02:00 08/13/19 02:00 Medical Decision Making - Medical Decision Making The pt is a 28F w/ a history of GERD who presents for evaluation of 4 hours of epigastric abdominal pain. ED Course CMP, CBC, Lipase, serum preg ECG IVF, Reglan, Pepcid, viscous lido 08/13/19 01:56 No leukocytosis No anemia 08/13/19 02:27 Hypokalemia noted, repleted Pt's symptoms initially improved but then returned to the level at which she presented Pt pending imaging and signed out to day team Discharge - Discharge Information Problems reviewed: Yes Clinical Impression/Diagnosis: Epigastric pain Nausea and vomiting Qualifiers: Vomiting type: unspecified Vomiting Intractability: unspecified Qualified Code(s): R11.2 - Nausea with vomiting, unspecified Condition: Stable - Follow up/Referral Referrals: Jerilyn Waggoner MD [Primary Care Provider] - Suzi Daley MD [Staff Physician] - Mihir Espinoza MD [Staff Physician] - - Patient Discharge Instructions Patient Printed Discharge Instructions: DI for Abdominal Pain-Adult, DI for Nausea -- Adult Additional Instructions: 1) Please follow-up with your primary care doctor in the next 2-3 days. Please call tomorrow to schedule a follow up appointment. If you cannot follow up with your doctor within 1 week please return to the Emergency Department for any urgent issues. 2) Your laboratory / imaging results were normal here in the ER. 3) If you have any worsening of symptoms or any other concerns, please return to the ER immediately. Return if worsening symptoms including fevers, headache, vomiting, visual or hearing disturbances, abdominal pain, chest pain, shortness of breath, syncope, dehydration, inability to take things by mouth/vomiting, altered mental status, or worsening concerning symptoms. 4) Please continue taking your home medications as directed. Side effects may include upset stomach, abdominal pain, vomiting, or diarrhea. Do not drink alcohol with your medications. - Post Discharge Activity Work/Back to School Note: Back to Work
[2019-08-13 01:45] VITALS: BMI 27.8
[2019-08-13] MEDS ORDERED: METOCLOPRAMIDE HCL INJECTION 10 MG/2 ML VIAL IVPB ONE (01:50)
[2019-08-13] MEDS ORDERED: ACETAMINOPHEN 1000 MG/100 ML VIAL (NON FORMULARY) IVPB ONE (01:50)
[2019-08-13] MEDS ORDERED: FAMOTIDINE 20 MG/50 ML IVPB 20 MG/50 ML MG IVPB ONE ×2 (01:50→02:02)
[2019-08-13] MEDS ORDERED: LACTATED RINGERS SOLUTION 1000 ML INFUS.BAG IV ONE (01:50)
[2019-08-13] MEDS ORDERED: LIDOCAINE VISCOUS 2% ORAL/TOP 20 ML UNIT-DOSE CUP MM ONE (01:51)
--- NOTE | 2019-08-13 02:00 | PDOC ---
Attending Attestation - Resident Resident Name: Terence Victor - ED Attending Attestation I have performed the following: I have examined & evaluated the patient, The case was reviewed & discussed with the resident, I agree w/resident's findings & plan - HPI HPI: 08/13/19 02:14 Pt comes with N/V. States that in the past 2 weeks she lost 20 lbs. She has epigastric pain; worse when she eats fatty meals. She doesn;t use drugs or drink etoh. She has no fam hx of GB disease. Pt has no other complaints. No fevers or chills. Pt appears well however, it is clear that her epigastric pain is real. 08/13/19 02:53 - Physicial Exam PE: 08/13/19 02:55 Agree with resident exam. - Medical Decision Making 08/13/19 02:55 Labs are normal, but pt still has RUQ pain. She has no flank pain and she has no dysuria. 08/13/19 02:56 Given her weight loss and her epigastric and RUQ pain, we will sono her abd
[2019-08-13] MEDS ORDERED: METOCLOPRAMIDE HCL INJECTION 10 MG/2 ML VIAL ONE (02:01)
[2019-08-13] MEDS ORDERED: LIDOCAINE VISCOUS 2% ORAL/TOP 20 ML UNIT-DOSE CUP ONE (02:01)
[2019-08-13] MEDS ORDERED: ACETAMINOPHEN INJECTION 100 ML IVPB ONE (02:02)
[2019-08-13 02:07] LABS: BASO % 0.4 % (0-2.0); EOS % 0.7 % (0-4.5); HEMATOCRIT 34.7 % (32.4-45.2); HEMOGLOBIN 11.6 GM/dL (10.7-15.3); LYMPH % 39.4 % (8-40); MCH 28.2 pg (25.7-33.7); MCHC 33.5 g/dl (32.0-36.0); MEAN CELL VOLUME 84.3 fl (80-96); MEAN PLT VOLUME 8.5 fl (7.5-11.1); MONO % 7.9 % (3.8-10.2); NEUT % 51.6 % (42.8-82.8); PLATELET COUNT 204 K/MM3 (134-434); RBC 4.12 M/mm3 (3.60-5.2); RDW 14.3 % (11.6-15.6)
[2019-08-13 02:32] LABS: BILIRUBIN,TOTAL 0.2 mg/dL (0.2-1); BLOOD UREA NITROGEN 10.2 mg/dL (7-18); CALCIUM 8.8 mg/dL (8.5-10.1); CREATININE 0.7 mg/dL (0.55-1.3); POTASSIUM 3.4 mmol/L (3.5-5.1); TOT PROT 7.9 g/dl (6.4-8.2)
[2019-08-13] MEDS ORDERED: POTASSIUM CHLORIDE TABS 20 MEQ TABLET.ER (FP) PO ONE ×2 (02:45→03:04)
[2019-08-13 07:29] VITALS: TEMP 98.2
--- NOTE | 2019-08-13 08:50 | PDOC ---
*Physical Exam - Vital Signs Last Vital Signs Temp Pulse Resp BP Pulse Ox 98.2 F 70 18 114/56 L 99 08/13/19 07:27 08/13/19 07:27 08/13/19 07:27 08/13/19 07:27 08/13/19 07:27 - Physical Exam 08/13/19 08:47 General Appearance: Nourished. No Apparent Distress HEENT: No Pharyngeal Erythema, Tonsillar Exudate, Tonsillar Erythema Neck: No Cervical Lymphadenopathy Respiratory/Chest: Lungs Clear, Normal Breath Sounds. No Crackles, Rales, Rhonchi, Wheezing Cardiovascular: Regular Rhythm, Regular Rate. No Murmur, Gallops, Rubs Gastrointestinal/Abdominal: Normal Bowel Sounds, Soft. No Guarding, Rebound, Tenderness Musculoskeletal: No CVA Tenderness Extremity: Normal Capillary Refill Integumentary: Normal Color, Dry, Warm Neurologic: Fully Oriented, Alert, Normal Mood/Affect, Normal Response, ED Treatment Course - LABORATORY CBC & Chemistry Diagram: 08/13/19 02:00 08/13/19 02:00 - ADDITIONAL ORDERS Additional order review: Laboratory Results 08/13/19 08/13/19 02:00 02:00 Sodium 141 Potassium 3.4 L Chloride 108 H Carbon Dioxide 26 Anion Gap 7 L BUN 10.2 Creatinine 0.7 Est GFR (CKD-EPI)AfAm 138.59 Est GFR (CKD-EPI)NonAf 119.58 Random Glucose 88 Calcium 8.8 Total Bilirubin 0.2 AST 20 ALT 17 Alkaline Phosphatase 84 Total Protein 7.9 Albumin 4.0 Lipase 139 Serum , Qual Negative 08/13/19 02:00 RBC 4.12 MCV 84.3 MCHC 33.5 RDW 14.3 MPV 8.5 Neutrophils % 51.6 D Lymphocytes % 39.4 D Monocytes % 7.9 Eosinophils % 0.7 D Basophils % 0.4 - Medications Given in the ED: ED Medications Discontinued Medications Generic Name Dose Route Start Last Admin Trade Name Freq PRN Reason Stop Dose Admin Acetaminophen 1,000 mg 08/13/19 01:50 08/13/19 02:09 Ofirmev Injection - IVPB 08/13/19 01:51 1,000 mg ONCE ONE Administration Famotidine/Sodium Chloride 20 mg in 50 mls @ 100 mls/hr 08/13/19 01:50 03/07/20 02:28 Pepcid 20 Mg Premixed Ivpb - IVPB 08/13/19 02:19 100 mls/hr ONCE ONE Administration Lactated Ringer's 1,000 ml 08/13/19 01:50 08/13/19 02:09 Lactated Ringers Solution IV 08/13/19 01:51 1,000 ml ONCE ONE Administration Lidocaine HCl 20 ml 08/13/19 01:51 08/13/19 02:55 Xylocaine 2% Viscous Oral - MM 08/13/19 01:52 Not Given ONCE ONE Metoclopramide HCl 10 mg 08/13/19 01:50 08/13/19 02:54 Reglan Injection - IVPB 08/13/19 01:51 10 mg ONCE ONE Administration Potassium Chloride 40 meq 08/13/19 02:45 08/13/19 03:15 K-Dur - PO 08/13/19 02:46 40 meq ONCE ONE Administration Medical Decision Making - Medical Decision Making 08/13/19 08:48 US did not demonstrate any acute pathology as preliminarily read by our personal financial advisor radiologist. The patient was reassessed and reports improvement in their symptoms. We are comfortable discharging the patient home in stable condition. Patient made aware of impression and plan, return precautions discussed includin g but not limited to worsening pain or symptoms, fevers, or signs of infection, chest pain, respiratory distress, inability to tolerate oral intake, dehydration, syncope, or neurologic changes. The patient is to follow up with PMD and specialist as recommended within 1 week, follow up information provided and the patient will call for an appointment. The patient is to take medications as instructed for duration of time and continue with supportive care, avoid triggers and precipitants. Patient is safe for outpatient follow-up. Discharge - Discharge Information Problems reviewed: Yes Clinical Impression/Diagnosis: Epigastric pain Nausea and vomiting Qualifiers: Vomiting type: unspecified Vomiting Intractability: unspecified Qualified Code(s): R11.2 - Nausea with vomiting, unspecified Condition: Stable Disposition: HOME - Admission No - Follow up/Referral Referrals: Jreilyn Waggoner MD [Primary Care Provider] - Suzi Daley MD [Staff Physician] - Mihir Espinoza MD [Staff Physician] - - Patient Discharge Instructions Patient Printed Discharge Instructions: DI for Nausea -- Adult, DI for Abdominal Pain-Adult Additional Instructions: 1) Please follow-up with your primary care doctor in the next 2-3 days. Please call tomorrow to schedule a follow up appointment. If you cannot follow up with your doctor within 1 week please return to the Emergency Department for any urgent issues. 2) Your laboratory / imaging results were normal here in the ER. 3) If you have any worsening of symptoms or any other concerns, please return to the ER immediately. Return if worsening symptoms including fevers, headache, vomiting, visual or hearing disturbances, abdominal pain, chest pain, shortness of breath, syncope, dehydration, inability to take things by mouth/vomiting, altered mental status, or worsening concerning symptoms. 4) Please continue taking your home medications as directed. Side effects may include upset stomach, abdominal pain, vomiting, or diarrhea. Do not drink alcohol with your medications. - Post Discharge Activity
[2019-08-13 08:59] VITALS: BP 118/73; PULSE 61
--- NOTE | 2019-08-13 10:28 | EKG ---
Test Reason : Blood Pressure : / mmHG Vent. Rate : 063 BPM Atrial Rate : 063 BPM P-R Int : 158 ms QRS Dur : 104 ms QT Int : 422 ms P-R-T Axes : 055 035 020 degrees QTc Int : 431 ms NORMAL SINUS RHYTHM NONSPECIFIC T WAVE ABNORMALITY ABNORMAL ECG WHEN COMPARED WITH ECG OF 30-JUL-2019 02:03, NONSPECIFIC T WAVE ABNORMALITY HAS REPLACED INVERTED T WAVES IN ANTERIOR LEADS Confirmed by Júnior Clark MD ([id number]) on 08/13/2019 10:28:20 AM Referred By: Confirmed By:Júnior Clark MD
== END 2019-08-13 09:05 | disposition home or self-care (01) ==
LOC: JER 01:32
PROC: 3E033GC Introduction of Other Therapeutic Substance into Peripheral Vein, Percutaneous Approach (ICD-10-PCS; principal; 2019-08-13)
PROC: 3E033GC Introduction of Other Therapeutic Substance into Peripheral Vein, Percutaneous Approach (ICD-10-PCS; 2019-08-13)
PROC: 3E033NZ Introduction of Analgesics, Hypnotics, Sedatives into Peripheral Vein, Percutaneous Approach (ICD-10-PCS; 2019-08-13)
DX: K21.9 Gastro-esophageal reflux disease without esophagitis (principal)
CPT/HCPCS: 36415; 76705-TC; 80053; 83690; 84703; 85025; 93005; 93010; 99285-25; J0131

== ENCOUNTER 2020-01-02 03:33 | Emergency (ER) | payer OTHER ==
[2020-01-02 03:40] VITALS: BMI 32.0
--- NOTE | 2020-01-02 03:45 | PDOC ---
History of Present Illness - General Chief Complaint: Pain Stated Complaint: ABDOMINAL PAIN / ? WEEKS Time Seen by Provider: 01/02/20 03:45 History Source: Patient Exam Limitations: No Limitations - History of Present Illness Initial Comments: 01/02/20 04:03 29yF presenting w 1d intermittent mild midline suprapubic pain. Was evaluated in ED on 09/27, dx w possible incomplete . Endorsed being evaluated last month w nonconcerning viable IUP on US, told due date was July 2020. Never f/u w OBGYN for care for current . Last period in July. Denies vaginal bleeding, discharge, fever, n/v. Past History - Medical History Allergies/Adverse Reactions: Allergies Allergy/AdvReac Type Severity Reaction Status Date / Time amoxicillin Allergy Verified 01/02/20 03:40 Penicillins Allergy Verified 01/02/20 03:40 Home Medications: Ambulatory Orders NK [No Known Home Medication] 08/13/19 COPD: No - Immunization History Immunization Up to Date: Yes - Psycho-Social/Smoking History Smoking History: Never smoked Have you smoked in the past 12 months: No Information on smoking cessation initiated: No - Substance Abuse Hx (Audit-C & DAST Scrn) How often the patient has a drink containing alcohol: Never Score: In Men: 4 or > Positive; In Women: 3 or > Positive: 0 Screen Result (Pos requires Nsg. Audit-10AR): Negative In the last yr the pt used illegal drug/Rx for NonMed reason: No Score: Yes response is considered Positive: 0 Screen Result (Positive result requires Nsg. DAST-10): Negative Review of Systems - Review of Systems Constitutional: No: Chills, Fever HEENTM: No: Eye Pain, Ear Discharge Respiratory: No: Cough, Shortness of Breath Cardiac (ROS): No: Chest Pain, Lightheadedness ABD/GI: Yes: Abdominal Distended. No: Constipated, Diarrhea, Nausea, Vomiting : No: Burning, Dysuria Musculoskeletal: No: Back Pain, Joint Pain Integumentary: No: Bruising, Dryness Neurological: No: Headache, Ataxia Psychiatric: No: Anxiety, Depression Endocrine: No: Intolerance to Cold, Intolerance to Heat Hematologic/Lymphatic: No: Anemia, Blood Clots *Physical Exam - Vital Signs Last Vital Signs Temp Pulse Resp BP Pulse Ox 98.1 F 89 18 116/84 97 01/02/20 03:35 01/02/20 03:35 01/02/20 03:35 01/02/20 03:35 01/02/20 03:35 - Physical Exam General Appearance: Yes: Nourished, Appropriately Dressed, Mild Distress HEENT: positive: EOMI, IVÁN, Normal Voice, Hearing Grossly Normal. negative: Scleral Icterus (R), Scleral Icterus (L) Respiratory/Chest: positive: Lungs Clear, Normal Breath Sounds. negative: Chest Tender, Respiratory Distress Cardiovascular: positive: Regular Rhythm, Regular Rate, S1, S2. negative: Edema, Murmur Gastrointestinal/Abdominal: positive: Normal Bowel Sounds, Tender (mild midline suprapubic), Soft, Distended Integumentary: positive: Normal Color, Warm Neurologic: positive: Fully Oriented, Alert, Normal Mood/Affect, Normal Response, Responsive Medical Decision Making - Medical Decision Making 01/02/20 04:35 29yF presenting w 1d intermittent mild midline suprapubic pain likely d/t round ligament stretch / . B-HCG 42,000. Bedside US showed viable IUP with HR. No sign of UTI. Given tylenol w relief DC home w OBGYN f/u Discharge - Discharge Information Problems reviewed: Yes Clinical Impression/Diagnosis: Round ligament pain Qualifiers: Weeks of gestation: unspecified Qualified Code(s): Z34.90 - Encounter for supervision of normal , unspecified, unspecified trimester Condition: Improved Disposition: HOME - Follow up/Referral - Patient Discharge Instructions Patient Printed Discharge Instructions: DI for Abdominal Pain -- Early Additional Instructions: Take tylenol if you have pain Please follow up with the referred OBGYN Dr German Go to the ED if you have vaginal bleeding, discharge, or worsening pain despite medication - Post Discharge Activity
[2020-01-02] MEDS ORDERED: ACETAMINOPHEN 500 MG TABLET (FP) PO ONE (04:12)
[2020-01-02] MEDS ORDERED: ACETAMINOPHEN 325 MG TABLET (FP) ONE (04:19)
--- NOTE | 2020-01-02 04:29 | PDOC ---
Attending Attestation - Resident Resident Name: Marco A Moore - ED Attending Attestation I have performed the following: I have examined & evaluated the patient, The case was reviewed & discussed with the resident, I agree w/resident's findings & plan, Exceptions are as noted - HPI HPI: 29 yo F G5 (?unclear) [id number] presents with 1 day of intermittent suprapubic pain, woke her from sleep tonight. She states she had a possible miscarriage on a prior visit, however, she never had another period after that. She has not followed up since then, and is not clear how far along she is in her current . - Physicial Exam PE: GENERAL: Awake, alert, and fully oriented, in no acute distress HEAD: No signs of trauma EYES: PERRLA, EOMI, sclera anicteric, conjunctiva clear ENT: Auricles normal inspection, hearing grossly normal, nares patent, oropharynx clear without exudates. Moist mucosa NECK: Normal ROM, supple, no lymphadenopathy, JVD, or masses LUNGS: Breath sounds equal, clear to auscultation bilaterally. No wheezes, and no crackles HEART: Regular rate and rhythm, normal S1 and S2, no murmurs, rubs or gallops ABDOMEN: Soft, nontender, normoactive bowel sounds. No guarding, no rebound. +Gravid uterus EXTREMITIES: Normal range of motion, no edema. No clubbing or cyanosis. No cords, erythema, or tenderness NEUROLOGICAL: Cranial nerves II through XII grossly intact. Normal speech, normal gait. Motor and sensation intact SKIN: Warm, dry, normal turgor, no rashes or lesions noted. - Medical Decision Making Will obtain UCG, B-HCG, and bedside as well as official sono. Discharge - Discharge Information Problems reviewed: Yes Clinical Impression/Diagnosis: Round ligament pain Qualifiers: Weeks of gestation: unspecified Qualified Code(s): Z34.90 - Encounter for supervision of normal , unspecified, unspecified trimester Condition: Improved Disposition: HOME - Follow up/Referral - Patient Discharge Instructions Patient Printed Discharge Instructions: DI for Abdominal Pain -- Early Additional Instructions: Take tylenol if you have pain Please follow up with the referred OBGYN Dr German Go to the ED if you have vaginal bleeding, discharge, or worsening pain despite medication - Post Discharge Activity
[2020-01-02 04:53] LABS: PH,URINE 5.5 (5.0-8.0); URINE APPEARANCE CLEAR; URINE BILIRUBIN NEGATIVE (NEGATIVE); URINE COLOR YELLOW; URINE GLUCOSE (UA) NEGATIVE (NEGATIVE); URINE KETONE NEGATIVE (NEGATIVE); URINE LEUK ESTERASE NEGATIVE (NEGATIVE); URINE NITRITE NEGATIVE (NEGATIVE); URINE PROTEIN NEGATIVE (NEGATIVE)
[2020-01-02 06:43] VITALS: BP 108/66; PULSE 76; TEMP 98.3
== END 2020-01-02 06:44 | disposition home or self-care (01) ==
LOC: JER 03:33
DX: O26.899 Other specified pregnancy related conditions, unspecified trimester (principal); Z3A.00 Weeks of gestation of pregnancy not specified
CPT/HCPCS: 36415; 81003; 84702; 87086; 99283-25

== ENCOUNTER 2020-09-04 12:00 | Emergency (ER) | payer OTHER ==
[2020-09-04 12:12] VITALS: BMI 36.6
[2020-09-04] MEDS ORDERED: ACETAMINOPHEN 1000 MG/100 ML VIAL (NON FORMULARY) IVPB ONE (13:19)
[2020-09-04] MEDS ORDERED: METOCLOPRAMIDE HCL INJECTION 10 MG/2 ML VIAL IVPUSH ONE (13:19)
[2020-09-04] MEDS ORDERED: SODIUM CHLORIDE 0.9% 500 ML INFUS.BAG IV ONE (13:19)
[2020-09-04] MEDS ORDERED: METOCLOPRAMIDE HCL INJECTION 10 MG/2 ML VIAL ONE (13:34)
[2020-09-04] MEDS ORDERED: ACETAMINOPHEN INJECTION 100 ML IVPB ONE (13:34)
[2020-09-04 14:19] LABS: BASO % 0.2 % (0-2.0); EOS % 0.1 % (0-4.5); HEMATOCRIT 34.3 % (32.4-45.2); HEMOGLOBIN 11.5 GM/dL (10.7-15.3); LYMPH % 18.5 % (8-40); MCH 26.5 pg (25.7-33.7); MCHC 33.5 g/dl (32.0-36.0); MEAN CELL VOLUME 79.2 fl (80-96); MEAN PLT VOLUME 8.8 fl (7.5-11.1); MONO % 11.6 % (3.8-10.2); NEUT % 69.6 % (42.8-82.8); PLATELET COUNT 256 K/MM3 (134-434); RBC 4.32 M/mm3 (3.60-5.2); RDW 14.5 % (11.6-15.6); WHITE BLOOD COUNT 10.7 K/mm3 (4.0-10.0)
[2020-09-04 14:35] LABS: POTASSIUM 3.4 mmol/L (3.5-5.1)
[2020-09-04 14:37] LABS: CALCIUM 9.6 mg/dL (8.5-10.1)
[2020-09-04 14:38] LABS: ALBUMIN 3.4 g/dl (3.4-5.0); BLOOD UREA NITROGEN 6.7 mg/dL (7-18)
[2020-09-04 14:42] LABS: BILIRUBIN,TOTAL 0.5 mg/dL (0.2-1); TOT PROT 8.6 g/dl (6.4-8.2)
[2020-09-04] MEDS ORDERED: KETOROLAC TROMETHAMINE 15 MG/ML VIAL IVPUSH ONE (16:58)
[2020-09-04] MEDS ORDERED: KETOROLAC TROMETHAMINE 15 MG/ML VIAL ONE (17:10)
[2020-09-04 17:25] VITALS: BP 104/67; PULSE 77; TEMP 98
== END 2020-09-04 17:25 | disposition home or self-care (01) ==
LOC: JER 12:00
PROC: 3E033GC Introduction of Other Therapeutic Substance into Peripheral Vein, Percutaneous Approach (ICD-10-PCS; principal; 2020-09-04)
DX: R11.10 Vomiting, unspecified (principal); R19.7 Diarrhea, unspecified
CPT/HCPCS: 36415; 80053; 84703; 85025; 87086; 87186; 99284-25; C9803; J0131; U0003

== ENCOUNTER 2022-09-15 17:08 | Inpatient (IN) | payer OTHER ==
[2022-09-15] MEDS ORDERED: SODIUM CHLORIDE 0.9% 500 ML INFUS.BAG IV ONE (19:51)
[2022-09-15 20:19] LABS: BASO % 0.6 % (0-2.0); EOS % 1.3 % (0-4.5); HEMATOCRIT 36.1 % (32.4-45.2); HEMOGLOBIN 12.1 GM/dL (10.7-15.3); LYMPH % 30.5 % (8-40); MCHC 33.4 g/dl (32.0-36.0); MEAN CELL VOLUME 80.9 fl (80-96); NEUT % 59.6 % (42.8-82.8); PLATELET COUNT 179 10^3/uL (134-434); RBC 4.46 M/mm3 (3.60-5.2); RDW 14.6 % (11.6-15.6); WHITE BLOOD COUNT 8.2 K/mm3 (4.0-10.0)
[2022-09-15 20:37] LABS: CHLORIDE 102 mmol/L (98-107); SODIUM 138 mmol/L (136-145)
[2022-09-15 20:38] LABS: CALCIUM 9.8 mg/dL (8.5-10.1)
[2022-09-15 20:39] LABS: BLOOD UREA NITROGEN 5.1 mg/dL (7-18); CO2 25 mmol/L (21-32); GLUCOSE,RANDOM 77 mg/dL (74-106); LIPASE 173 U/L (73-393); MAGNESIUM 1.7 mg/dL (1.8-2.4)
[2022-09-15 20:42] LABS: CREATININE 0.7 mg/dL (0.55-1.3); SGOT/AST 20 U/L (15-37); SGPT/ALT 24 U/L (13-61)
[2022-09-15 20:43] LABS: BILIRUBIN,TOTAL 0.5 mg/dL (0.2-1); TOT PROT 8.7 g/dl (6.4-8.2)
[2022-09-15 20:45] LABS: ALK PHOS 122 U/L (45-117)
[2022-09-15 21:21] LABS: EPI CELLS >36 /uL (0-25.1); HYALINE CASTS 9 /uL (0-3.1); URINE APPEARANCE CLEAR; URINE BACTERIA 191 /uL (0-1359); URINE BILIRUBIN NEGATIVE (NEGATIVE); URINE COLOR YELLOW; URINE GLUCOSE (UA) NEGATIVE (NEGATIVE); URINE KETONE 4+ (NEGATIVE); URINE LEUK ESTERASE TRACE (NEGATIVE); URINE NITRITE NEGATIVE (NEGATIVE); URINE PROTEIN 1+ (NEGATIVE); URINE RBC 9 /uL (0-23.9); URINE WBC 45 /uL (0-25.8)
[2022-09-15 21:23] LABS: ANION GAP 11 MMOL/L (8-16); POTASSIUM 2.7 mmol/L (3.5-5.1)
[2022-09-15] MEDS ORDERED: POTASSIUM CHLORIDE TABS 20 MEQ TABLET.ER (FP) PO ONE ×2 (21:32→21:38)
[2022-09-15 21:33] LABS: HCG,QUALITATIVE URINE Negative
[2022-09-15] MEDS ORDERED: MAGNESIUM SULF 50% (8.12 MEQ/2 ML-1 GM VIAL) IVPB ONE (21:34)
[2022-09-15] MEDS ORDERED: MAGNESIUM SULFATE IN WATER 2 GM/50 ML IVPB IVPB ONE (21:38)
[2022-09-15] MEDS ORDERED: METOCLOPRAMIDE HCL INJECTION 10 MG/2 ML VIAL IVPUSH ONE (22:22)
[2022-09-15] MEDS ORDERED: METOCLOPRAMIDE HCL INJECTION 10 MG/2 ML VIAL ONE (22:27)
[2022-09-15] MEDS ORDERED: KCL 10 MEQ IVPB 10 MEQ/100 ML INFUS.BAG IVPB ONE (22:28)
[2022-09-15] MEDS: KCL 10 MEQ IVPB 10 MEQ/100 ML INFUS.BAG IVPB SCH (22:37)
[2022-09-16] MEDS: KCL 10 MEQ IVPB 10 MEQ/100 ML INFUS.BAG IVPB SCH ×4 (03:38→13:23)
[2022-09-16] MEDS ORDERED: KCL 10 MEQ IVPB 10 MEQ/100 ML INFUS.BAG IVPB ONE (03:40)
[2022-09-16] MEDS ORDERED: MAGNESIUM SULF 50% (8.12 MEQ/2 ML-1 GM VIAL) IVPB ONE (05:09)
[2022-09-16] MEDS ORDERED: METOCLOPRAMIDE HCL INJECTION 10 MG/2 ML VIAL IVPUSH ONE (05:09)
[2022-09-16] MEDS ORDERED: POTASSIUM CHLORIDE TABS 20 MEQ TABLET.ER (FP) PO ONE (06:00)
[2022-09-16] MEDS ORDERED: MAGNESIUM 1GM/D5W - 1 GM/100 ML IVPB IVPB ONE (06:00)
[2022-09-16 07:57] LABS: HEMATOCRIT 32.8 % (32.4-45.2); HEMOGLOBIN 11.2 GM/dL (10.7-15.3); MCH 27.9 pg (25.7-33.7); MCHC 34.3 g/dl (32.0-36.0); MEAN CELL VOLUME 81.3 fl (80-96); MEAN PLT VOLUME 10.7 fl (7.5-11.1); PLATELET COUNT 161 10^3/uL (134-434); RBC 4.03 M/mm3 (3.60-5.2); RDW 14.6 % (11.6-15.6); WHITE BLOOD COUNT 7.9 K/mm3 (4.0-10.0)
[2022-09-16 08:04] LABS: POTASSIUM 3.4 mmol/L (3.5-5.1)
[2022-09-16 08:06] LABS: OPIATES, URI NEGATIVE (NEGATIVE); PHENCYCLIDINE,URINE NEGATIVE (NEGATIVE); URINE AMPHETAMINES NEGATIVE (NEGATIVE); URINE BARBITURATES NEGATIVE (NEGATIVE); URINE BENZODIAZEPINES NEGATIVE (NEGATIVE)
[2022-09-16 08:07] LABS: ALBUMIN 3.5 g/dl (3.4-5.0); BLOOD UREA NITROGEN 3.2 mg/dL (7-18); MAGNESIUM 2.3 mg/dL (1.8-2.4)
[2022-09-16 08:07] LABS: COCAINE, UR NEGATIVE (NEGATIVE)
[2022-09-16 08:10] LABS: CREATININE 0.6 mg/dL (0.55-1.3); PHOSPHOROUS 2.8 mg/dL (2.5-4.9)
[2022-09-16 08:12] LABS: BILIRUBIN,TOTAL 0.5 mg/dL (0.2-1); TOT PROT 7.3 g/dl (6.4-8.2)
[2022-09-16 08:16] LABS: METHADONE, UR NEGATIVE (NEGATIVE)
[2022-09-16] MEDS ORDERED: ENOXAPARIN NA (PORCINE) 40 MG/0.4 ML DISP.SYRIN SQ ONE (09:38)
[2022-09-16] MEDS: ENOXAPARIN NA (PORCINE) 40 MG/0.4 ML DISP.SYRIN SQ SCH (09:47)
[2022-09-16] MEDS ORDERED: POTASSIUM CHLORIDE ORAL LIQUID 20 MEQ/15 ML PO ONE ×3 (10:15→16:45)
[2022-09-16] MEDS: PANTOPRAZOLE SODIUM 40 MG VIAL IVPUSH SCH (11:30)
[2022-09-16 11:53] VITALS: BMI 32.4
[2022-09-16] MEDS: POTASSIUM CHLORIDE 10 MEQ in DEXTROSE 5%-NORMAL SALINE 1,000 ML IVPB SCH ×2 (12:39→23:35)
[2022-09-16] MEDS: POTASSIUM CHLORIDE TABS 20 MEQ TABLET.ER (FP) PO ONE ×2 (12:59→13:23)
[2022-09-16] MEDS ORDERED: METOCLOPRAMIDE HCL INJECTION 10 MG/2 ML VIAL IVPUSH PRN (15:16)
[2022-09-16] MEDS: METOCLOPRAMIDE HCL INJECTION 10 MG/2 ML VIAL IVPUSH SCH ×2 (16:17→22:48)
[2022-09-16] MEDS: ACETAMINOPHEN 1000 MG/100 ML BAG IVPB PRN (16:24)
[2022-09-16] MEDS: POLYETHYLENE GLYCOL (HEALTHYLAX) 3350 17 GM PACKET PO SCH (22:48)
[2022-09-16] MEDS ORDERED: ONDANSETRON 4 MG/2 ML VIAL IVPUSH ONE (23:40)
[2022-09-16] MEDS ORDERED: FAMOTIDINE 10 MG TABLET PO ONE (23:42)
[2022-09-16] MEDS ORDERED: FAMOTIDINE 20 MG TABLET PO ONE (23:42)
[2022-09-17] MEDS ORDERED: FAMOTIDINE 10 MG TABLET PO ONE (00:30)
[2022-09-17] MEDS: ACETAMINOPHEN 1000 MG/100 ML BAG IVPB PRN (00:44)
[2022-09-17] MEDS: METOCLOPRAMIDE HCL INJECTION 10 MG/2 ML VIAL IVPUSH SCH ×3 (06:03→12:09)
[2022-09-17] MEDS: POTASSIUM CHLORIDE 10 MEQ in DEXTROSE 5%-NORMAL SALINE 1,000 ML IVPB SCH ×2 (06:03→12:07)
[2022-09-17 07:37] LABS: HEMOGLOBIN 11.4 GM/dL (10.7-15.3); MCH 27.9 pg (25.7-33.7); MCHC 34.5 g/dl (32.0-36.0); MEAN CELL VOLUME 80.9 fl (80-96); PLATELET COUNT 159 10^3/uL (134-434); RBC 4.09 M/mm3 (3.60-5.2); RDW 15.1 % (11.6-15.6); WHITE BLOOD COUNT 7.1 K/mm3 (4.0-10.0)
[2022-09-17 07:55] LABS: CHLORIDE 110 mmol/L (98-107); SODIUM 142 mmol/L (136-145)
[2022-09-17 07:57] LABS: ALBUMIN 3.2 g/dl (3.4-5.0); CALCIUM 8.6 mg/dL (8.5-10.1); CO2 26 mmol/L (21-32); GLUCOSE,RANDOM 113 mg/dL (74-106); MAGNESIUM 1.5 mg/dL (1.8-2.4)
[2022-09-17 08:00] LABS: CREATININE 0.5 mg/dL (0.55-1.3); PHOSPHOROUS 2.4 mg/dL (2.5-4.9); SGOT/AST 15 U/L (15-37)
[2022-09-17 08:01] LABS: SGPT/ALT 19 U/L (13-61)
[2022-09-17 08:02] LABS: BILIRUBIN,TOTAL 0.4 mg/dL (0.2-1)
[2022-09-17 08:03] LABS: ALK PHOS 104 U/L (45-117)
[2022-09-17 08:06] LABS: ANION GAP 6 MMOL/L (8-16); BLOOD UREA NITROGEN 2.5 mg/dL (7-18); POTASSIUM 2.9 mmol/L (3.5-5.1)
[2022-09-17] MEDS ORDERED: MAGNESIUM SULF 50% (8.12 MEQ/2 ML-1 GM VIAL) IVPB ONE (08:10)
[2022-09-17] MEDS ORDERED: POTASSIUM CHLORIDE TABS 20 MEQ TABLET.ER (FP) PO ONE (08:16)
[2022-09-17] MEDS: KCL 10 MEQ IVPB 10 MEQ/100 ML INFUS.BAG IVPB SCH ×3 (08:41→12:00)
[2022-09-17] MEDS ORDERED: NAPH,MB-DB/K PH,MBDB POWDER PACKET PO SCH (10:00)
[2022-09-17] MEDS: ENOXAPARIN NA (PORCINE) 40 MG/0.4 ML DISP.SYRIN SQ SCH (10:00)
[2022-09-17] MEDS: PANTOPRAZOLE SODIUM 40 MG VIAL IVPUSH SCH (12:00)
[2022-09-17] MEDS: VANCOMYCIN 250 MG/5 ML ORAL SOLUTION PO SCH ×2 (12:07→17:23)
[2022-09-17] MEDS: POLYETHYLENE GLYCOL (HEALTHYLAX) 3350 17 GM PACKET PO SCH (12:53)
[2022-09-17] MEDS ORDERED: POTASSIUM CHLORIDE ORAL LIQUID 20 MEQ/15 ML PO ONE (13:45)
[2022-09-17] MEDS ORDERED: TRIMETHOBENZAMIDE HCL 200MG/2ML INJ IM PRN (15:27)
[2022-09-17 16:46] LABS: POTASSIUM 3.3 mmol/L (3.5-5.1)
[2022-09-17] MEDS ORDERED: POTASSIUM CHLORIDE 40 MEQ in SODIUM CHLORIDE 1,000 ML IV SCH (17:00)
[2022-09-17 18:41] LABS: MAGNESIUM 2.1 mg/dL (1.8-2.4)
[2022-09-17 18:45] LABS: PHOSPHOROUS 1.8 mg/dL (2.5-4.9)
[2022-09-17] MEDS ORDERED: POTASSIUM PHOSPHATE 30 MM in SODIUM CHLORIDE 500 ML IVPB ONE (23:35)
[2022-09-18] MEDS: VANCOMYCIN 250 MG/5 ML ORAL SOLUTION PO SCH ×4 (00:55→17:59)
[2022-09-18] MEDS: NAPH,MB-DB/K PH,MBDB POWDER PACKET PO SCH ×3 (05:18→21:21)
[2022-09-18 08:28] LABS: HEMATOCRIT 31.8 % (32.4-45.2); HEMOGLOBIN 10.7 GM/dL (10.7-15.3); MCH 27.4 pg (25.7-33.7); MCHC 33.5 g/dl (32.0-36.0); MEAN CELL VOLUME 81.6 fl (80-96); MEAN PLT VOLUME 11.7 fl (7.5-11.1); PLATELET COUNT 141 10^3/uL (134-434); RBC 3.89 M/mm3 (3.60-5.2); WHITE BLOOD COUNT 6.7 K/mm3 (4.0-10.0)
[2022-09-18 08:43] LABS: CHLORIDE 110 mmol/L (98-107); POTASSIUM 3.3 mmol/L (3.5-5.1); SODIUM 142 mmol/L (136-145)
[2022-09-18 08:47] LABS: ANION GAP 6 MMOL/L (8-16); CO2 26 mmol/L (21-32)
[2022-09-18 08:49] LABS: CALCIUM 8.3 mg/dL (8.5-10.1); MAGNESIUM 1.5 mg/dL (1.8-2.4)
[2022-09-18 08:51] LABS: ALBUMIN 3.1 g/dl (3.4-5.0); CREATININE 0.4 mg/dL (0.55-1.3); GLUCOSE,RANDOM 82 mg/dL (74-106); SGOT/AST 11 U/L (15-37); SGPT/ALT 16 U/L (13-61)
[2022-09-18 08:52] LABS: TOT PROT 6.6 g/dl (6.4-8.2)
[2022-09-18 08:54] LABS: CHOLESTEROL 95 mg/dL (50-200)
[2022-09-18 08:55] LABS: BILIRUBIN,TOTAL 0.6 mg/dL (0.2-1); LDL CHOLESTEROL (ONLY SJRH) 47 mg/dL (5-100)
[2022-09-18 08:56] LABS: ALK PHOS 100 U/L (45-117)
[2022-09-18 08:57] LABS: HDL CHOLESTEROL 35 mg/dL (40-60)
[2022-09-18] MEDS ORDERED: AMINO ACIDS 4.25%/D5W 1,000 ML IV SCH (09:00)
[2022-09-18 10:03] LABS: BLOOD UREA NITROGEN 1.8 mg/dL (7-18)
[2022-09-18] MEDS: PANTOPRAZOLE SODIUM 40 MG VIAL IVPUSH SCH (11:28)
[2022-09-18] MEDS: ENOXAPARIN NA (PORCINE) 40 MG/0.4 ML DISP.SYRIN SQ SCH (11:46)
[2022-09-18] MEDS ORDERED: MAGNESIUM 2GM/50ML STERILE WATER IVPB IVPB ONE (12:15)
[2022-09-18] MEDS: POTASSIUM CHLORIDE ORAL LIQUID 20 MEQ/15 ML PO ONE ×2 (12:31→14:02)
[2022-09-18] MEDS: KCL 10 MEQ IVPB 10 MEQ/100 ML INFUS.BAG IVPB SCH ×3 (13:55→17:54)
[2022-09-18] MEDS ORDERED: POTASSIUM CHLORIDE TABS 20 MEQ TABLET.ER (FP) PO ONE (15:00)
[2022-09-18] MEDS ORDERED: POTASSIUM CHLORIDE 10 MEQ in DEXTROSE 5%-NORMAL SALINE 1,000 ML IVPB SCH (15:45)
[2022-09-18] MEDS ORDERED: POTASSIUM CHLORIDE ORAL LIQUID 20 MEQ/15 ML PO ONE ×2 (16:59→17:30)
[2022-09-18] MEDS: POTASSIUM CHLORIDE 40 MEQ in SODIUM CHLORIDE 1,000 ML IV SCH (17:54)
[2022-09-18] MEDS ORDERED: ACETAMINOPHEN 1000 MG/100 ML BAG IVPB PRN (19:33)
[2022-09-18 20:15] LABS: CHLORIDE 107 mmol/L (98-107); POTASSIUM 3.6 mmol/L (3.5-5.1); SODIUM 140 mmol/L (136-145)
[2022-09-18 20:16] LABS: GLUCOSE,RANDOM 76 mg/dL (74-106)
[2022-09-18 20:17] LABS: ANION GAP 7 MMOL/L (8-16); CALCIUM 8.9 mg/dL (8.5-10.1); CO2 25 mmol/L (21-32)
[2022-09-18 20:20] LABS: CREATININE 0.4 mg/dL (0.55-1.3); PHOSPHOROUS 2.4 mg/dL (2.5-4.9)
[2022-09-18 20:21] LABS: BLOOD UREA NITROGEN 1.5 mg/dL (7-18)
[2022-09-18] MEDS: MAGNESIUM OXIDE 400 MG TABLET (FP) PO SCH (21:21)
[2022-09-18] MEDS ORDERED: NAPH,MB-DB/K PH,MBDB POWDER PACKET PO ONE (21:22)
[2022-09-19] MEDS: VANCOMYCIN 250 MG/5 ML ORAL SOLUTION PO SCH ×4 (00:42→17:22)
[2022-09-19] MEDS: NAPH,MB-DB/K PH,MBDB POWDER PACKET PO SCH ×4 (05:36→21:25)
[2022-09-19] MEDS: POTASSIUM CHLORIDE 40 MEQ in SODIUM CHLORIDE 1,000 ML IV SCH ×2 (06:48→07:05)
[2022-09-19 08:08] LABS: HEMATOCRIT 30.8 % (32.4-45.2); HEMOGLOBIN 10.3 GM/dL (10.7-15.3); MCH 27.4 pg (25.7-33.7); MCHC 33.4 g/dl (32.0-36.0); MEAN CELL VOLUME 82.1 fl (80-96); MEAN PLT VOLUME 10.3 fl (7.5-11.1); PLATELET COUNT 128 10^3/uL (134-434); RBC 3.75 M/mm3 (3.60-5.2); RDW 14.8 % (11.6-15.6)
[2022-09-19 08:36] LABS: CHLORIDE 109 mmol/L (98-107); POTASSIUM 3.5 mmol/L (3.5-5.1); SODIUM 142 mmol/L (136-145)
[2022-09-19 08:43] LABS: CALCIUM 8.4 mg/dL (8.5-10.1)
[2022-09-19 08:44] LABS: ALBUMIN 2.9 g/dl (3.4-5.0); ANION GAP 8 MMOL/L (8-16); CO2 25 mmol/L (21-32); GLUCOSE,RANDOM 70 mg/dL (74-106); MAGNESIUM 1.8 mg/dL (1.8-2.4)
[2022-09-19 08:47] LABS: CREATININE 0.4 mg/dL (0.55-1.3); PHOSPHOROUS 2.6 mg/dL (2.5-4.9); SGOT/AST 10 U/L (15-37); SGPT/ALT 14 U/L (13-61); TOT PROT 6.2 g/dl (6.4-8.2)
[2022-09-19 08:48] LABS: BILIRUBIN,TOTAL 0.4 mg/dL (0.2-1)
[2022-09-19 08:49] LABS: ALK PHOS 103 U/L (45-117)
[2022-09-19] MEDS: ENOXAPARIN NA (PORCINE) 40 MG/0.4 ML DISP.SYRIN SQ SCH (10:46)
[2022-09-19] MEDS: PANTOPRAZOLE SODIUM 40 MG VIAL IVPUSH SCH (11:18)
[2022-09-19] MEDS: MAGNESIUM OXIDE 400 MG TABLET (FP) PO SCH ×2 (11:51→21:25)
[2022-09-19 14:36] VITALS: RESP 18
[2022-09-19] MEDS ORDERED: METOCLOPRAMIDE HCL INJECTION 10 MG/2 ML VIAL IVPUSH ONE (14:54)
[2022-09-19] MEDS ORDERED: POTASSIUM CHLORIDE ORAL LIQUID 20 MEQ/15 ML PO ONE (15:49)
[2022-09-19] MEDS: D5-NS + 40 MEQ KCL - 40 MEQ/1,000 ML INFUS.BAG IV SCH (17:25)
[2022-09-20] MEDS: VANCOMYCIN 250 MG/5 ML ORAL SOLUTION PO SCH ×3 (00:06→11:35)
[2022-09-20 06:41] LABS: HEMATOCRIT 29.5 % (32.4-45.2); HEMOGLOBIN 10.2 GM/dL (10.7-15.3); MCH 27.9 pg (25.7-33.7); MCHC 34.5 g/dl (32.0-36.0); MEAN CELL VOLUME 80.8 fl (80-96); MEAN PLT VOLUME 10.6 fl (7.5-11.1); PLATELET COUNT 133 10^3/uL (134-434); RBC 3.66 M/mm3 (3.60-5.2); RDW 14.6 % (11.6-15.6); WHITE BLOOD COUNT 7.3 K/mm3 (4.0-10.0)
[2022-09-20 07:06] LABS: POTASSIUM 3.4 mmol/L (3.5-5.1)
[2022-09-20 07:08] LABS: CALCIUM 8.6 mg/dL (8.5-10.1)
[2022-09-20 07:10] LABS: ALBUMIN 2.9 g/dl (3.4-5.0); BLOOD UREA NITROGEN 3.2 mg/dL (7-18); MAGNESIUM 1.6 mg/dL (1.8-2.4)
[2022-09-20 07:11] LABS: CREATININE 0.4 mg/dL (0.55-1.3); PHOSPHOROUS 3.2 mg/dL (2.5-4.9)
[2022-09-20] MEDS ORDERED: POTASSIUM CHLORIDE ORAL LIQUID 20 MEQ/15 ML PO ONE (07:12)
[2022-09-20 07:13] LABS: BILIRUBIN,TOTAL 0.3 mg/dL (0.2-1); TOT PROT 6.4 g/dl (6.4-8.2)
[2022-09-20] MEDS: NAPH,MB-DB/K PH,MBDB POWDER PACKET PO SCH (07:13)
[2022-09-20] MEDS ORDERED: MAGNESIUM SULF 50% (8.12 MEQ/2 ML-1 GM VIAL) IVPB ONE (08:00)
[2022-09-20] MEDS: D5-NS + 40 MEQ KCL - 40 MEQ/1,000 ML INFUS.BAG IV SCH (08:10)
[2022-09-20] MEDS: PANTOPRAZOLE SODIUM 40 MG VIAL IVPUSH SCH (09:40)
[2022-09-20] MEDS: ENOXAPARIN NA (PORCINE) 40 MG/0.4 ML DISP.SYRIN SQ SCH (09:40)
[2022-09-20] MEDS: MAGNESIUM OXIDE 400 MG TABLET (FP) PO SCH (09:40)
[2022-09-20 10:45] VITALS: BP 115/74; PULSE 69; TEMP 98.6
[2022-09-20] MEDS ORDERED: KCL 10 MEQ IVPB 10 MEQ/100 ML INFUS.BAG IVPB SCH (11:00)
== END 2022-09-20 12:45 | disposition left against medical advice (07) | DRG 425 ==
LOC: JER 17:08 → JERBED 09-16 02:53 → J4S 09-16 10:33 → OBSVTOIN 09-18 14:03
PROVIDERS: ADMIT Internal Medicine; ATTEND Internal Medicine
PROC: 0DB68ZX Excision of Stomach, Via Natural or Artificial Opening Endoscopic, Diagnostic (ICD-10-PCS; principal; 2022-09-17 12:00)
DX: E87.6 Hypokalemia (principal); I10 Essential (primary) hypertension; E66.9 Obesity, unspecified; Z68.32 Body mass index [BMI] 32.0-32.9, adult; E83.42 Hypomagnesemia; E83.39 Other disorders of phosphorus metabolism; R11.2 Nausea with vomiting, unspecified; F12.90 Cannabis use, unspecified, uncomplicated; I44.2 Atrioventricular block, complete; R00.1 Bradycardia, unspecified; A04.72 Enterocolitis due to Clostridium difficile, not specified as recurrent; K44.9 Diaphragmatic hernia without obstruction or gangrene; I48.91 Unspecified atrial fibrillation; K31.84 Gastroparesis; I48.92 Unspecified atrial flutter; Z88.0 Allergy status to penicillin; Z98.84 Bariatric surgery status
CPT/HCPCS: 0241U-QW; 36415; 71046-TC-FY; 74177-TC; 74220-TC-FY; 74240-TC-FY; 76705-TC; 80048; 80053; 80061; 80307; 81003; 82607; 83690; 83735; 84100; 84132; 84133; 84436; 84443; 84484; 84703; 85025; 85027; 86140; 86850; 86900; 86901; 87045; 87046; 87077; 87086; 87186; 87205; 87209; 87324; 87449; 87493; 88305-TC; 88342-TC; 93005; 93010; 99285-25; G0378; Q9967

== ENCOUNTER 2024-01-08 00:32 | Emergency (ER) | payer OTHER ==
[2024-01-08 00:51] VITALS: BP 125/94; PULSE 68; RESP 18; TEMP 98.6; BMI 27.8
[2024-01-08 01:29] LABS: EPI CELLS 26 /uL (0-25.1); HYALINE CASTS 6 /uL (0-3.1); PH,URINE 6.5 (5.0-8.0); URINE APPEARANCE CLOUDY; URINE BACTERIA >9,000 /uL (0-1359); URINE BILIRUBIN NEGATIVE (NEGATIVE); URINE COLOR YELLOW; URINE GLUCOSE (UA) NEGATIVE (NEGATIVE); URINE KETONE NEGATIVE (NEGATIVE); URINE LEUK ESTERASE 1+ (NEGATIVE); URINE NITRITE POSITIVE (NEGATIVE); URINE PROTEIN NEGATIVE (NEGATIVE); URINE RBC 13 /uL (0-23.9); URINE WBC 151 /uL (0-25.8)
[2024-01-08] MEDS ORDERED: ACETAMINOPHEN 500 MG TABLET (FP) ONE (01:29)
[2024-01-08] MEDS ORDERED: METHOCARBAMOL 500 MG TABLET ONE (01:30)
[2024-01-08] MEDS ORDERED: LIDOCAINE 4% PATCH TP ONE (01:30)
[2024-01-08] MEDS ORDERED: NITROFURANTOIN MACROCRYSTAL 50 MG CAPSULE (FP) ONE (01:33)
[2024-01-08 01:34] LABS: HCG,QUALITATIVE URINE Negative
[2024-01-08] MEDS: ACETAMINOPHEN 500 MG TABLET (FP) PO ONE (01:35)
[2024-01-08] MEDS: METHOCARBAMOL 500 MG TABLET PO ONE (01:35)
[2024-01-08] MEDS: LIDOCAINE 4% PATCH TP ONE (01:35)
[2024-01-08] MEDS: NITROFURANTOIN MONOHYD/M-CRYST 100 MG CAPSULE PO ONE (01:36)
[2024-01-08] MEDS ORDERED: KETOROLAC TROMETHAMINE 30 MG/1 ML VIAL ONE (02:04)
[2024-01-08] MEDS: KETOROLAC TROMETHAMINE 30 MG/1 ML VIAL IM ONE (02:19)
[2024-01-08] MEDS ORDERED: FAMOTIDINE 20 MG TABLET ONE (02:47)
[2024-01-08] MEDS ORDERED: LIDOCAINE PATCH REMOVAL MC ONE (14:00)
== END 2024-01-08 02:41 | disposition home or self-care (01) ==
LOC: JER 00:32
DX: M54.2 Cervicalgia (principal); N39.0 Urinary tract infection, site not specified; M54.9 Dorsalgia, unspecified; R07.89 Other chest pain; V43.62XA Car passenger injured in collision with other type car in traffic accident, initial encounter; Y92.410 Unspecified street and highway as the place of occurrence of the external cause
CPT/HCPCS: 70450-TC; 71046-TC-FY; 72070-TC-FY; 72100-TC-FY; 72125-TC; 72170-TC-FY; 73521-TC-FY; 81003; 84703; 87086; 87186; 93005; 93010; 99285-25